=== PATIENT | female | born 1970 ===

== ENCOUNTER 2018-01-22 08:25 | Inpatient (IN) | payer OTHER ==
[~2018-01-22] VITALS: Ht 149.9 cm; Wt 57.2 kg
[~2018-01-22 08:25] MED LIST: SIMVASTATIN20 MG PO
== END 2018-01-26 14:49 | DRG 743 ==
LOC: CIR.AMB 08:25 → OB/GYN 15:39 → O/R 15:39 → OB/GYN 16:05 → CIR.AMB 16:55 → OB/GYN 16:57
PROVIDERS: Obstetrics & Gynecology Obstetrics
PROC: 0WJJ0ZZ Inspection of Pelvic Cavity, Open Approach (ICD-10-PCS; 2018-01-22)
PROC: 0UB00ZZ Excision of Right Ovary, Open Approach (ICD-10-PCS; principal; 2018-01-22 01:30)
DX: D27.0 Benign neoplasm of right ovary (principal)